=== PATIENT | male | born 2000 | race Caucasian/White ===

== ENCOUNTER 2019-01-27 10:19 | Day surgery (SDC) | payer BC ==
[2019-01-27] MEDS ORDERED: LIDOCAINE 1%/EPI (1:100,000) (MDV) 20 ML (12:27)
[2019-01-27] MEDS ORDERED: FENTAnyl 50 MCG/ML VIAL (12:45)
[2019-01-27] MEDS ORDERED: CEFAZOLIN 1 GM INJ (12:58)
[2019-01-27] MEDS ORDERED: PROPOFOL 40 ML (13:01)
[2019-01-27] MEDS ORDERED: ONDANSETRON 4 MG INJ (13:01)
[2019-01-27] MEDS ORDERED: DEXAMETHASONE 4 MG/ML 5 ML INJ (13:01)
[2019-01-27] MEDS ORDERED: LIDOCAINE 2% (SDV) 5 ML INJ (13:01)
[2019-01-27] MEDS ORDERED: HYDROmorphONE 1 MG/5 ML IV SYRINGE IV (13:22)
[2019-01-27] MEDS: OXYMETAZOLINE 0.05% 15 ML NAS SPRAY NASAL (13:28)
[2019-01-27] MEDS ORDERED: MEPERIDINE 25 MG INJ IV (13:30)
[2019-01-27] MEDS: HYDROmorphONE 1 MG/5 ML IV SYRINGE IV ×2 (13:30→13:37)
[2019-01-27] MEDS ORDERED: OXYCODONE/ACETAMINOPHEN (5/325) TAB PO ×2 (13:30)
[2019-01-27] MEDS ORDERED: ONDANSETRON 4 MG INJ IV (13:30)
[2019-01-27] MEDS: FENTAnyl 50 MCG/ML VIAL IV (13:39)
== END 2019-01-27 15:25 | disposition home or self-care (01) ==
LOC: SDS 10:19
DX: S02.2XXD Fracture of nasal bones, subsequent encounter for fracture with routine healing (principal); X58.XXXD Exposure to other specified factors, subsequent encounter; J45.909 Unspecified asthma, uncomplicated
CPT/HCPCS: 21315